=== PATIENT | male | born 2000 | race Caucasian/White ===

== ENCOUNTER 2020-05-09 22:00 | Emergency (ER) | payer OTHER ==
[~2020-05-09] VITALS: Ht 172.7 cm; Wt 81.6 kg
[2020-05-09 22:15] VITALS: BP 144/92
--- NOTE | 2020-05-09 22:18 | NUR ---
To ED bed 04
--- NOTE | 2020-05-09 22:42 | NUR ---
Dr. You examining patient.
--- NOTE | 2020-05-09 22:57 | NUR ---
PT HAS NO PRIOR HX TO ALLERGY TO PEANUTS BUT STATES WHEN HE WAS EATING SOME THIS EVENING HE SUDDENLY FELT FLUSHED, HIS FACE TURNED RED, DEVELOPED BLURRED VISION, AND HIS HANDS BECAME NUMB. DENIES ANY SOB, NO SWELLING, NO ITCHING, NO N/V/D. 02 SAT ON ROOMAIR 99%, BILATERAL LUNG SOUNDS CLEAR. BED IN LOWEST POSITION AND SIDERAIL UP X 1. NKA NO HX
--- NOTE | 2020-05-09 23:01 | NUR ---
Patient discharged with v/s stable. Written and verbal after care instructions given and explained. Patient verbalized understanding. Ambulatory with steady gait. All questions addressed prior to discharge. Advised to follow up with PMD.
== END 2020-05-09 23:01 | disposition home or self-care (01) ==
LOC: MED 22:00
DX: T78.1XXA Other adverse food reactions, not elsewhere classified, initial encounter (principal); X58.XXXA Exposure to other specified factors, initial encounter
CPT/HCPCS: 99282